=== PATIENT | male | born 1985 | race Caucasian/White ===

== ENCOUNTER 2020-05-31 17:00 | Emergency (ER) | payer SELFPAY ==
[~2020-05-31] VITALS: Ht 185.4 cm; Wt 89.4 kg
[2020-05-31] MEDS ORDERED: ACETAMINOPHEN 325 MG TAB PO ONE (18:00)
[2020-05-31] MEDS ORDERED: LIDOCAINE VISC 2% SOLN 15 ML UDC PO ONE (18:00)
[2020-05-31] MEDS ORDERED: LIDOCAINE VISC 2% SOLN 15 ML UDC ONE (18:14)
[2020-05-31] MEDS ORDERED: ACETAMINOPHEN 325 MG TAB ONE (18:14)
[2020-05-31] MEDS ORDERED: AUGMENTIN 875-1 EACH PO (18:41)
[2020-05-31] MEDS ORDERED: PREDNISONE20 MG PO (18:41)
== END 2020-05-31 18:54 | disposition home or self-care (01) ==
LOC: FSED 17:10
DX: J02.0 Streptococcal pharyngitis (principal); R50.9 Fever, unspecified; R51.9 Headache, unspecified
CPT/HCPCS: 83518; 87400; 99283